=== PATIENT | female | born 1950 | race Caucasian/White ===

== ENCOUNTER 2021-11-09 23:28 | Emergency (ER) | payer MEDICARE ==
[~2021-11-09 23:28] MED LIST: AZITHROMYCIN250 MG PO; BISOPROLOL FUMAR5 MG PO; CEFDINIR300 MG PO; CLONAZEPAM0.5 M1 PO; COLESTID 1GM TAB1 GM PO; ELAVIL25 MG PO; HYZAAR 100-251 EACH PO; KLOR-CON M2020 MEQ PO; LIPITOR20 MG PO; LOPRESSOR25 MG PO; METHYLPREDNISOLO4 M2 PO; PLAQUENIL200 MG PO; PRILOSEC20 MG PO; PROVENTIL HFA6.7 GM INH; SINGULAIR10 MG PO; SYMBICORT 80-10.2 GM INH; SYNTHROID50 MC1 PO
[2021-11-09 23:51] LABS: BASOPHIL 0.6 % (0-2); HCT 37.3 % (37.0-47.0); HGB 12.2 g/dl (12.5-16.0); LYMPHOCYTE 21.8 % (15-48); MCH 29.8 pg (25.0-31.0); MCHC 32.7 g/dL (32.0-36.0); MONOCYTE 10.2 % (0-12); MPV 10.3 fL (6.0-9.5); NEUTROPHIL 65.1 % (41-80); NRBC 0; PLT 333 K/uL (150-400); RDW 15.4 % (11.5-14.0); WBC 6.9 K/uL (4.0-10.5)
[2021-11-10 00:03] LABS: INR 1.01 (0.9-1.2); PROTHROMBIN TIME 12.7 SECONDS (11.8-13.4); PTT 28.2 SECONDS (24.4-34.7)
[2021-11-10 00:12] LABS: ALBUMIN 3.6 g/dL (3.4-5.0); BILIRUBIN - TOTAL 1.1 mg/dL (0.2-1.0); BUN/CREAT RATIO (CALC) 20.5 RATIO; CREATININE 0.78 mg/dL (0.51-0.95); MAGNESIUM 1.5 mg/dL (1.8-2.4); TOTAL PROTEIN 7.6 g/dL (6.4-8.2)
== END 2021-11-10 02:50 | disposition home or self-care (01) ==
LOC: FER 23:28
PROVIDERS: Internal Medicine
DX: R07.89 Other chest pain (principal); I10 Essential (primary) hypertension; J44.9 Chronic obstructive pulmonary disease, unspecified; Z99.81 Dependence on supplemental oxygen
CPT/HCPCS: 36415; 80053; 83690; 83735; 84145; 84484; 85025; 85610; 85730; 93005